=== PATIENT | male | born 1945 | race Caucasian/White ===

== ENCOUNTER 2016-12-19 06:55 | Observation (INO) | payer MEDICARE, BC ==
[~2016-12-19 06:55] MED LIST: Lidocaine 2% Jelly 5 ML Tube ONE; Propofol 200 MG/20 ML SDV ONE; fentaNYL 100 MCG/2 ML SDV ONE
[2016-12-19] MEDS ORDERED: Sodium Chloride 0.9% 5 ML Syringe FLUSH PRN (07:00)
[2016-12-19] MEDS: Lactated Ringers 1,000 ML IV SCH ×2 (07:30→14:09)
[2016-12-19] MEDS ORDERED: Propofol 200 MG/20 ML SDV ONE ×2 (08:15→08:44)
[2016-12-19] MEDS ORDERED: fentaNYL 100 MCG/2 ML SDV ONE (08:30)
[2016-12-19] MEDS ORDERED: fentaNYL 100 MCG/2 ML SDV IV ONE (08:40)
[2016-12-19] MEDS ORDERED: AMINOCAPROIC ACID 5 GM/20 ML IV ONE (08:40)
[2016-12-19] MEDS ORDERED: Propofol 200 MG/20 ML SDV IV ONE (08:40)
[2016-12-19] MEDS ORDERED: AMINOCAPROIC ACID 5 GM/20 ML ONE (08:49)
[2016-12-19] MEDS ORDERED: Lidocaine 2% Jelly 10 ML Urojet ONE (09:12)
--- NOTE | 2016-12-19 10:24 | PCM.OPNOTE ---
- General Post-Op/Procedure Note Date of Surgery/Procedure: 12/19/16 Operative Procedure(s): Cystoscopy and fulgration of bleeders. Findings: Many bleeding vessels noted at the bladder neck and prostatic urethra. Anesthesia Technique: MAC Primary Surgeon: Gerda Sargent Condition: Good Free Text/Narrative:: Dictated.
[2016-12-19] MEDS ORDERED: Dextrose 5%-0.45% NaCl 1,000 ML IV SCH (20:15)
[2016-12-19] MEDS: Acetaminophen 325 MG Tab PO PRN (20:46)
[2016-12-19] MEDS ORDERED: cefTRIAXone 1 GM Vial IVPUSH ONE (21:00)
[2016-12-20 06:41] VITALS: BP 153/64
[2016-12-20] MEDS: Acetaminophen 325 MG Tab PO PRN (07:34)
--- NOTE | 2016-12-20 08:15 | OR ---
DATE OF SURGERY: 12/19/2016 SURGEON: Gerda Sargent MD PREOPERATIVE DIAGNOSIS: Hematuria, significant. POSTOPERATIVE DIAGNOSIS: Many vessels present at the prostatic urethra and the bladder neck. Moderate prostatic enlargement. Moderate trilobar prostatic enlargement, particularly left lateral lobe. No evidence of bladder neoplasm noted. OPERATION PERFORMED: Cystoscopy and fulguration of bleeders at the bladder neck and the prostatic urethra. Informed consent was obtained from the patient regarding this procedure. All possible complications were discussed and he wished to proceed. DESCRIPTION OF PROCEDURE: He was taken to the operating room, and kept in the lithotomy position after being given a satisfactory anesthesia by the surgical lead. We then draped his lower abdomen and genitals in the usual fashion. Cystoscopy was first accomplished using a 20-Hebrew obturator sheath and a forward viewing Santana Zeiss cystoscope. Inspection revealed many bleeding vessels present within the prostatic urethra and at the bladder neck. Both ureteric orifices were normal in location. Rest of the bladder mucosa was felt to be normal. Bladder capacity was somewhat small. We then used the resectoscope and cauterized the vessels at the base of the bladder, neck, and the prostatic urethra. Care was taken to stay proximal to the verumontanum. We then removed the cystoscope and placed a 26-Hebrew three-way Lobo catheter and connected it to continuous irrigation. The patient tolerated the procedure well. There were no operative complications. He was returned to the recovery room in an excellent condition. /[id number]/MODL
[2016-12-20] MEDS ORDERED: Terazosin 5 MG Cap PO SCH (09:00)
[2016-12-20] MEDS ORDERED: atorvaSTATin 10 MG Tab PO SCH (09:00)
[2016-12-20] MEDS ORDERED: Terazosin 1 MG Cap PO SCH (09:00)
[2016-12-20] MEDS ORDERED: Aminocaproic Acid 1 GM in Sodium Chloride 0.9% 250 ML IV ONE (09:30)
[2016-12-20] MEDS ORDERED: Finasteride 5 MG Tab PO SCH (10:30)
--- NOTE | 2016-12-21 09:54 | PN ---
DATE OF SURGERY: 12/20/2016 SURGEON: Gerda Sargent MD POSTOP NOTE This is a 71-year-old gentleman who was admitted yesterday because of gross hematuria. He was felt to have prostatic and bladder neck bleeders. These were cauterized. He was kept on continuous irrigation. The fluid is returning fairly clear. We will go ahead and stop the irrigation today. No malignancy or stone was found. Today, his vital signs are stable. Blood pressure is 153/64, temperature 98.3, respiratory rate is 18, pulse is 65. He is feeling well. No abdominal pain or discomfort. FINAL DIAGNOSIS: Hematuria due to bleeding from the prostate and the bladder neck. Treatment accomplished. We will go ahead and discontinue his continuous bladder irrigation today. We will give one dose of Amicar and then after that, the catheter will be removed. We will see how he does. If the urine is clear, then he will be discharged home today. We will discharge him home on his old medications including Tylenol for discomfort, atorvastatin 20 mg daily for hypercholesterolemia, terazosin/Hytrin 5 mg daily, and we will also start him on Proscar 5 mg daily also. We will see him back in followup in a few days' time. I have also spoken that if his symptoms do not improve and if his bleeding recurs or he has more trouble with voiding, he may eventually need to have a TURP. /[id number]/MODL
== END 2016-12-20 12:30 | disposition home or self-care (01) ==
LOC: KA.SDS 06:55 → KA.MS 10:12
PROVIDERS: ADMIT Family Medicine; ATTEND Family Medicine
DX: N40.0 Benign prostatic hyperplasia without lower urinary tract symptoms (principal); I10 Essential (primary) hypertension; E78.5 Hyperlipidemia, unspecified; K21.9 Gastro-esophageal reflux disease without esophagitis; E66.9 Obesity, unspecified; F17.210 Nicotine dependence, cigarettes, uncomplicated; Z79.82 Long term (current) use of aspirin; Z79.899 Other long term (current) drug therapy; Z68.29 Body mass index [BMI] 29.0-29.9, adult
CPT/HCPCS: 36415; 52214; 85014; 85018; 96360; 96361; A9270; G0378; J0696; J2704; J3010; J7042; J7050; J7120; 00910; S0017

== ENCOUNTER 2024-04-04 10:19 | Emergency (ER) | payer MEDICARE, BC ==
[2024-04-04] MEDS ORDERED: Naloxone 0.4 MG/ML SDV IVPUSH PRN (10:23)
[2024-04-04] MEDS: HYDROmorphone 1 MG/ML Syringe IM ONE (10:35)
[2024-04-04 12:11] VITALS: BP 138/60; PULSE 97
== END 2024-04-04 12:14 | disposition home or self-care (01) ==
LOC: KA.ED 10:19
DX: S96.912A Strain of unspecified muscle and tendon at ankle and foot level, left foot, initial encounter (principal); M19.072 Primary osteoarthritis, left ankle and foot; I10 Essential (primary) hypertension; Z79.82 Long term (current) use of aspirin; Z79.899 Other long term (current) drug therapy; W18.40XA Slipping, tripping and stumbling without falling, unspecified, initial encounter
CPT/HCPCS: 73620; 96372; 99283; J1171; 99284